=== PATIENT | female | born 1965 | race Caucasian/White ===

== ENCOUNTER 2024-04-30 18:26 | Emergency (ER) | payer OTHER, SELFPAY ==
[2024-04-30 18:30] VITALS: BP 174/79; BMI 43.9
[2024-04-30] MEDS: TYLENOL 1000 MG PO (19:51)
--- NOTE | 2024-04-30 20:30 | ED.GENMED ---
History of Present Illness
General
Chief Complaint: Fall
Time Seen by Provider: 04/30/24 20:30
History of Present Illness
History of Present Illness:
HPI: Patient presents after a fall. She was in a seated position so then on no crates and that she leaned to reach something, the crates fell and she fell down striking the back of her head and injuring her back. She also had right shoulder pain
that is now improved. She has some head neck pain as well. She denies any other injury. She has no abdominal pain.
EXAM:
GENERAL: Well appearing but in mild to moderate distress due to pain
CERVICAL SPINE: No midline c-spine tenderness with good AROM
HEAD: No evidence of craniofacial trauma
CHEST: No chest wall tenderness, normal heart sounds
LUNGS: Equal lung sounds, no respiratory distress
ABDOMEN: No abdominal tenderness, no peritoneal signs
EXTREMITIES: Normal active range of motion, no tenderness however she does have some vague discomfort and decreased active range of motion due to pain to the left lower extremity
BACK: There is some midline L-spine tenderness and there is decreased active range of motion of the thoracolumbar spine due to pain
NEURO: Excellent strength all extremities, appropriate mental status, normal speech/language
TIME OF INITIAL ENCOUNTER: 8:30 PM
NUMBER AND COMPLEXITY OF PROBLEMS ADDRESSED AT THE ENCOUNTER
� Chronic conditions affecting care: Seizure disorder, high blood pressure
� Acute Exacerbation and/or Progression of Chronic Illness: This is an acute problem
� Differential Diagnosis includes: Contusion, cervical strain, cervical sprain, cervical spine fracture, lumbar fracture, intracranial hemorrhage, shoulder fracture/dislocation
AMOUNT AND/OR COMPLEXITY OF DATA TO BE REVIEWED AND ANALYZED
� I performed an independent evaluation of and my interpretation is:
EKG:
CT: CT head shows no acute traumatic abnormality; CT of the cervical spine shows severe discogenic degenerative disease
X-rays: Right shoulder and lumbar spine x-rays unremarkable
Laboratory Studies:
Other:
� Review of other/old records: The patient had an ED visit in 2019 for a toe infection
� Clinical information was obtained by an independent historian: I spoke to family member at bedside
� Prescriptions/Medications Considered but not given:
� Further testing considered but not performed:
RISK OF COMPLICATIONS AND/OR MORBIDITY OR MORTALITY OF PATIENT MANAGEMENT
� Social determinants of health affecting care: Lives at home
� Discussion with other providers:
� Escalation of care including admission/observation vs risk of discharge considered: The patient appears very uncomfortable. She was given narcotic analgesia.
Past History
Past History
ED Past Medical History: HTN
ED Past Surgical History: Other
Social History
Drug: None
Personal:
Living: with family
Employment: Employed
Family History
Family History: Other
Phy Exam
Physical Exam
Physical Exam:
See HPI
Course
Orders/Labs/Results
Orders:
Orders
04/30/24 18:33
CT Cervical Spine W/o Iv Contr Urgent
Comment:
Reason For Exam: pain
CT Head W/o Iv Contrast Urgent
Comment:
Reason For Exam: pain
CR Shoulder, Trauma - Right Urgent
Reason For Exam: pain
Lumbar Spine, 2 or 3 View [CR Lumbar Spine 2 Or 3 Views] Urgent
Comment:
Reason For Exam: pain
04/30/24 19:50
Acetaminophen [Tylenol] 1,000 mg .ROUTE .STK-MED ONE
04/30/24 19:51
Acetaminophen [Tylenol] 1,000 mg PO NOW STA
04/30/24 20:45
Ketorolac [Toradol] 30 mg IM NOW STA
Oxycodone [Roxicodone] 10 mg PO NOW STA
Vital Signs
Initial and Last Documented VS:
Initial Vital Signs
Temp Pulse Resp BP Pulse Ox
98.2 F 94 20 174/79 99
07/28/24 18:30 04/30/24 18:30 04/30/24 18:30 04/30/24 18:30 04/30/24 18:30
Last Documented Vital Signs
Temp Pulse Resp BP Pulse Ox
98.2 F 94 20 174/79 99
04/30/24 18:30 04/30/24 18:30 04/30/24 18:30 04/30/24 18:30 04/30/24 18:30
*Critical Care Note
Total Time (30-74mins, 75-104mins- exclusive of procedures): Not Applicable
ED Attending Note
-
Portions of this chart may have been created with voice recognition software.� Occasional wrong word or��sound alike� substitutions may have occurred due to the inherent limitations of voice recognition software.
Discharge Plan
Departure
Patient Disposition: Home (Routine Discharge)
Date of Disposition: 04/30/24
Time of Disposition: 20:46
Patient with high blood pressure during this ER visit?: Yes
Discharge Problem:
Contusion of multiple sites
Instructions: Contusion (DC)
Prescriptions:
New
oxycodone-acetaminophen 5-325 mg tablet
1 - 2 tab PO Q8H PRN (Reason: Pain) Qty: 10 0RF
No Action
clindamycin HCl [Cleocin HCl] 300 MG capsule
300 mg PO TID 7 Days Qty: 21 0RF
Referrals:
Niels Mitchell MD [Family Provider] -
Activity Restrictions/Additional Instructions:
X-ray of the right shoulder shows no fracture. X-ray of the lumbar spine does not show any definite sign of a fracture. It is possible with the amount of pain that there could be a small fracture however this is generally treated with pain
management. CAT scan of the brain shows no bleeding. CAT scan of the cervical spine shows degenerative disc disease. Please follow-up with your primary care doctor. I recommend 3-4 [id number] ibuprofen (Motrin) every 8 hours with food for
a few days. I also sent a prescription for narcotic analgesia for the next 1 to 2 days only be taken if pain is significant. Return here if worse. I also recommended take something like MiraLAX to help prevent constipation if you take the
narcotic.
Interventions
Interventions:
*Risk Screen - Suicide Last Done: 04/30/24 18:30
*General Assessment Last Done: 04/30/24 19:39
*Neglect/Abuse Screening Last Done: 04/30/24 18:30
ED- Fall Risk Assessment Last Done: 04/30/24 18:30
*ED COVID-19 Vaccine History Last Done: 04/30/24 19:39
ED-Musculoskeletal Assessment Last Done: 04/30/24 19:39
ED- Neurological Assessment Last Done: 04/30/24 19:39
ED-Skin Assessment Last Done: 04/30/24 19:39
Discharge Date and Time
Print Language: PASHTO
[2024-04-30] MEDS: ROXICODONE 10 MG PO (21:06)
[2024-04-30] MEDS: TORADOL 30 MG IM (21:08)
== END 2024-04-30 21:25 | disposition home or self-care (01) ==
LOC: EMR 18:26
PROVIDERS: EMERGENCY PHYSICIAN Emergency Medicine; FAMILY PHYSICIAN Family Medicine
DX: S09.90XA Unspecified injury of head, initial encounter (principal); W19.XXXA Unspecified fall, initial encounter; I10 Essential (primary) hypertension
CPT/HCPCS: 99284; 96372; 70450; 72100; 72125; 73030